=== PATIENT | male | born 1960 | race African-American/Black ===

== ENCOUNTER 2017-05-22 18:46 | Emergency (ER) | payer SELFPAY ==
[2017-05-22] MEDS ORDERED: cefTRIAXone\\ROCEPHIN 2 GM VIAL ONE (19:56)
[2017-05-22] MEDS ORDERED: Ketorolac Tromethamine 30 MG/ML VIAL ONE (19:59)
[2017-05-22 20:17] LABS: ALT (SGPT) 25 U/L (8-55); AST (SGOT) 14 U/L (5-34); Albumin 3.6 g/dL (3.5-5.0); Alkaline Phosphatase 56 U/L (40-150); Anion Gap 18 mmol/L (10-20); BUN (Urea Nitrogen) 9 mg/dL (8.4-25.7); Bilirubin, Total 0.6 mg/dL (0.2-1.2); Calc. Creatinine Clearance 0 mL/min (70-130); Calcium 9.2 mg/dL (7.8-10.44); Carbon Dioxide 23 mmol/L (22-29); Chloride 99 mmol/L (98-107); Estimated GFR-MDRD 83; Globulin 4.5 g/dL (2.4-3.5); Glucose 150 mg/dL (70-105); Potassium 3.7 mmol/L (3.5-5.1); Protein, Total 8.1 g/dL (6.0-8.3); Sodium 136 mmol/L (136-145)
[2017-05-22 20:21] LABS: Band 3 % (5-11); Hemoglobin 13.3 g/dL (14.0-18.0); Lymphocytes 6 % (21-51); MDiff Complete? YES; Mean Corpuscular Hemoglobin 33.4 pg (27.0-31.0); Mean Corpuscular Volume 92.7 fl (80.0-94.0); Mean Platelet Volume 6.1 fL (7.4-10.4); Monocytes 4 % (0-10); Neutrophil 87 % (42-75); Platelet Count 417 thou/uL (130-400); RBC Distribution Width 10.2 % (11.5-14.5); Red Blood Cell (RBC) Count 3.98 mill/uL (4.70-6.10); Toxic Granulation MODERATE; Vacuoles SLIGHT; White Blood Cell (WBC) Count 19.1 thou/uL (4.8-10.8)
[2017-05-22] MEDS ORDERED: Albuterol Sulfate 1.25 MG/3 ML NEB ONE (20:34)
[2017-05-22] MEDS ORDERED: Azithromycin 500 MG VIAL ONE (20:39)
[2017-05-22 20:44] LABS: Bilirubin Negative (Negative); Blood, Urine Negative (Negative); Clarity Clear (Clear); Glucose, Urine (Dipstick) Negative (Negative); Leukocyte Negative (Negative); Nitrite Negative (Negative); Protein, Urine (Dipstick) Trace mg/dL (Neg-Trace)
--- NOTE | 2017-05-22 21:14 | RAD ---
CHEST TWO VIEWS 05/22/17 Two views show a left lower lobe infiltrate consistent with pneumonia. The right lung is clear. Some calcified hilar nodes are suggested. The heart size is normal. There are no signs of vascular congest ion or large pleural effusions. IMPRESSION: Left lower lobe pneumonia. POS: HOME
== END 2017-05-22 21:28 | disposition short-term general hospital (02) ==
LOC: BURERS 18:46
DX: J10.00 Influenza due to other identified influenza virus with unspecified type of pneumonia (principal)
CPT/HCPCS: 71046; 80053; 81003; 83605; 85025; 87040; 87070; 87077; 87086; 87149; 87205; 87804; 94640; 94760; 96365; 96367; 96375; J0456; J0696; J1885; J7620

== ENCOUNTER 2017-09-05 15:48 | Emergency (ER) | payer OTHER, SELFPAY | END 2017-09-05 16:23 | disposition home or self-care (01) | LOC: BURERS 15:48 | DX: S39.011A Strain of muscle, fascia and tendon of abdomen, initial encounter (principal); F17.210 Nicotine dependence, cigarettes, uncomplicated; Z87.01 Personal history of pneumonia (recurrent); X58.XXXA Exposure to other specified factors, initial encounter | CPT/HCPCS: 99283 ==

== ENCOUNTER 2018-03-15 22:42 | Emergency (ER) | payer OTHER, SELFPAY ==
[2018-03-15] MEDS ORDERED: Fluorescein Opthalmic Strip ONE (22:53)
[2018-03-15] MEDS ORDERED: Gentamicin Ophth Soln 0.3% 5 ml Bottle ONE (23:13)
== END 2018-03-15 23:20 | disposition home or self-care (01) ==
LOC: BURERS 22:42
DX: H10.9 Unspecified conjunctivitis (principal); Z87.891 Personal history of nicotine dependence
CPT/HCPCS: 99283

== ENCOUNTER 2020-11-15 13:20 | Emergency (ER) | payer OTHER, SELFPAY ==
[2020-11-15 22:03] LABS: SARS-CoV-2 PCR by NAA DETECTED (NotDetected)
== END 2020-11-15 14:02 | disposition home or self-care (01) ==
LOC: BURERS 13:20
DX: U07.1 COVID-19 (principal); Z87.891 Personal history of nicotine dependence
CPT/HCPCS: 99283; U0003; U0005

== ENCOUNTER 2022-08-27 11:08 | Emergency (ER) | payer BC, OTHER ==
[2022-08-27] MEDS ORDERED: predniSONE 20 MG TAB ONE (11:33)
[2022-08-27] MEDS ORDERED: Ketorolac Tromethamine 30 MG/ML VIAL ONE (11:33)
[2022-08-27 11:37] LABS: #Basophils 0.1 thou/uL (0.0-0.2); #Eosinphils 0.1 thou/uL (0.0-0.7); #Lymphocytes 2.7 thou/uL (1.20-3.40); #Monocytes 1.3 thou/uL (0.11-0.59); #Neutrophils 9.2 thou/uL (1.40-6.50); %Basophils 0.7 % (0.0-1.0); %Eosinophils 0.4 % (0.0-10.0); %Lymphocytes 20.6 % (21.0-51.0); %Monocytes 9.4 % (0.0-10.0); Hemoglobin 14.8 g/dL (14.0-18.0); Mean Corpuscular HGB CONC 34.2 g/dL (32.0-36.0); Mean Corpuscular Hemoglobin 31.9 pg (27.0-31.0); Mean Corpuscular Volume 93.1 fl (78.0-98.0); Platelet Count 248 10x3/uL (130-400); RBC Distribution Width 10.9 % (11.5-14.5); Red Blood Cell (RBC) Count 4.64 mill/uL (4.70-6.10); White Blood Cell (WBC) Count 13.3 10x3/uL (4.8-10.8)
[2022-08-27 11:55] LABS: ALT (SGPT) 12 U/L (8-55); AST (SGOT) 11 U/L (5-34); Alkaline Phosphatase 50 U/L (40-110); Anion Gap 13 mmol/L (10-20); BUN (Urea Nitrogen) 10 mg/dL (8.4-25.7); Bilirubin, Total 1.4 mg/dL (0.2-1.2); Calc. Creatinine Clearance 0 mL/min (70-130); Calcium 8.9 mg/dL (7.8-10.44); Carbon Dioxide 24 mmol/L (22-29); Chloride 103 mmol/L (98-107); Estimated GFR 94; Globulin 4.2 g/dL (2.4-3.5); Glucose 91 mg/dL (70-105); Potassium 3.6 mmol/L (3.5-5.1); Protein, Total 8.2 g/dL (6.0-8.3); Sodium 136 mmol/L (136-145)
== END 2022-08-27 11:32 | disposition home or self-care (01) ==
LOC: BURERS 11:08
DX: S29.011A Strain of muscle and tendon of front wall of thorax, initial encounter (principal); X50.0XXA Overexertion from strenuous movement or load, initial encounter; Z87.891 Personal history of nicotine dependence
CPT/HCPCS: 36415; 71045; 80053; 83880; 84484; 85025; 93005; 96372; J1885; J7512

== ENCOUNTER 2023-01-30 10:15 | Emergency (ER) | payer BC ==
[2023-01-30 11:15] LABS: Band 5 % (5-11); Eosinophils 2 % (0-10); Hemoglobin 14.8 g/dL (14.0-18.0); Lymphocytes 5 % (21-51); MDiff Complete? YES; Mean Corpuscular HGB CONC 33.7 g/dL (32.0-36.0); Mean Corpuscular Hemoglobin 31.5 pg (27.0-31.0); Mean Corpuscular Volume 93.5 fl (78.0-98.0); Mean Platelet Volume 7.7 fL (7.4-10.4); Monocytes 5 % (0-10); Neutrophil 83 % (42-75); Platelet Count 256 10x3/uL (130-400); RBC Distribution Width 11.6 % (11.5-14.5); White Blood Cell (WBC) Count 22.5 10x3/uL (4.8-10.8)
[2023-01-30 11:21] LABS: ALT (SGPT) 19 U/L (8-55); AST (SGOT) 17 U/L (5-34); Albumin 3.9 g/dL (3.4-4.8); Alkaline Phosphatase 47 U/L (40-110); Anion Gap 14 mmol/L (10-20); BUN (Urea Nitrogen) 11 mg/dL (8.4-25.7); Bilirubin, Total 0.5 mg/dL (0.2-1.2); Calc. Creatinine Clearance 0 mL/min (70-130); Calcium 8.4 mg/dL (7.8-10.44); Carbon Dioxide 21 mmol/L (23-31); Chloride 109 mmol/L (98-107); Estimated GFR 99; Globulin 3.6 g/dL (2.4-3.5); Glucose 132 mg/dL (80-115); Lipase 22 U/L (8-78); Potassium 4.4 mmol/L (3.5-5.1); Protein, Total 7.5 g/dL (5.8-8.1); Sodium 140 mmol/L (136-145)
== END 2023-01-30 11:45 | disposition home or self-care (01) ==
LOC: BURERS 10:15
DX: A05.9 Bacterial foodborne intoxication, unspecified (principal); Z87.891 Personal history of nicotine dependence
CPT/HCPCS: 36415; 80053; 83605; 83690; 85025; 93005

== ENCOUNTER 2024-01-28 12:47 | Emergency (ER) | payer BC | END 2024-01-28 13:12 | disposition home or self-care (01) | LOC: BURERS 12:47 | DX: L03.116 Cellulitis of left lower limb (principal); Z87.891 Personal history of nicotine dependence | CPT/HCPCS: 99283 ==